=== PATIENT | female | born 1955 | race Hispanic/Latino ===

== ENCOUNTER 2023-10-20 06:30 | Emergency (ER) | payer MEDICARE, OTHER ==
[~2023-10-20] VITALS: Ht 144.8 cm; Wt 44.9 kg
[2023-10-20 08:30] VITALS: BP 166/76; PULSE 70; RESP 16; O2SAT 99
[2023-10-20] MEDS ORDERED: NAPR375T6 PO (08:40)
[2023-10-20] MEDS: TETANUS/DIPHTHERIA TOXOID [ADULT] 0.5 ML VIAL IM ONE (09:27)
== END 2023-10-20 09:33 | disposition home or self-care (01) ==
LOC: EDH 06:30
DX: S42.322A Displaced transverse fracture of shaft of humerus, left arm, initial encounter for closed fracture (principal); E03.9 Hypothyroidism, unspecified; E78.00 Pure hypercholesterolemia, unspecified; I10 Essential (primary) hypertension; Z88.5 Allergy status to narcotic agent; W18.39XA Other fall on same level, initial encounter; Y93.01 Activity, walking, marching and hiking; Y92.89 Other specified places as the place of occurrence of the external cause; Y99.8 Other external cause status
CPT/HCPCS: 29105; 70140; 73030; 73080; 73502; 90471; 90714